=== PATIENT | male | born 1955 | race African-American/Black ===

== ENCOUNTER 2016-08-25 04:11 | Emergency (ER) | payer MEDICARE, BC ==
[~2016-08-25] VITALS: Ht 172.7 cm; Wt 86.2 kg
[~2016-08-25 04:11] MED LIST: ABILIFY2 MG ORAL; AVAPRO75 MG ORAL; AVODART0.5 MG ORAL; CARVEDILOL6.25 MG ORAL; HYDROQUINONE TP; KONSYL1 EACH PO; LASIX20 M1 ORAL; LORAZEPAM2 MG ORAL; MACROBID100 MG ORAL; MIRTAZAPINE15 MG ORAL; NORVASC10 MG ORAL; OXYCODONE HCL15 M1 ORAL; OXYCONTIN10 MG ORAL; POTASSIUM CHLO20 ME3 PO; PREPARATION H30 GM PR; RAPAFLO8 MG PO; REMERON15 MG ORAL; RETIN-A15 GM TP; SUPER BETA PROSTATE PO; TESTOSTERO200 MG/12 IM; WELLBUTRIN XL150 MG ORAL
[2016-08-25 05:00] VITALS: BP 180/110
--- NOTE | 2016-08-25 05:46 | Emergency Room Report ---
History of Present Illness General Chief Complaint: General Complaint Source: Patient (NINI FISHER M.D.) Present Illness HPI Is a 61-year-old male with multiple history of cancer in the past. Including throat and lung cancer. He presents with chief complaint of hemoptysis. Onset last night. He said he coughed up specks of blood. This occurred 6 times. He thought it may be secondary to his OxyContin. Denies any fever chills denies any nausea vomiting. No weight loss. No other complaint. (NINI FISHER M.D.) Allergies: Coded Allergies: No Known Allergies (Verified , 06/08/06) Patient History Past Medical History: see triage record, old chart reviewed Past Surgical History: other Pertinent Family History: none Social History: Denies: drug use Immunizations: other Reviewed Nursing Documentation: PMH: Agreed, PSxH: Agreed (NINI FISHER M.D.) Nursing Documentation-PMH Past Medical History: No History, Except For Hx Cardiac Problems: Yes Hx Hypertension: Yes Hx Pacemaker: Yes - Left chest Hx Asthma: Yes Hx COPD: Yes Hx Diabetes: Yes Hx Cancer: Yes Hx Neurological Problems: Yes Hx Cerebrovascular Accident: Yes Hx Transient Ischemic Attacks: Yes Hx Seizures: Yes - 1 TIME Hx Epilepsy: Yes Hx Memory Loss: Yes Hx Tremors: Yes Hx Vertigo: Yes Hx Dizziness: Yes Hx Syncope: Yes Hx Headaches: Yes Hx Numbness: Yes Hx Weakness: Yes Hx Fatigue: Yes (NINI FISHER M.D.) Review of Systems Eye: Denies: blurred vision, eye pain ENT: Denies: ear pain, nose congestion, throat swelling Respiratory: Denies: cough, shortness of breath Cardiovascular: Denies: chest pain, palpitations Gastrointestinal: Denies: abdominal pain, diarrhea, nausea, vomiting Musculoskeletal: Denies: back pain, joint pain Skin: Denies: rash Neurological: Denies: headache, numbness Endocrine: Denies: increased thirst, increased urine Hematologic/Lymphatic: Denies: easy bruising All Other Systems: negative except mentioned in HPI (NINI FISHER M.D.) Physical Exam Vital Signs Date Time Temp Pulse Resp B/P Pulse Ox O2 Delivery O2 Flow Rate FiO2 08/25/16 04:40 98.8 80 16 180/110 99 Room Air vitals with hypertension Sp02 EP Interpretation: reviewed, normal General Appearance: well appearing, no apparent distress, alert Head: normocephalic, atraumatic Eyes: bilateral eye EOMI, bilateral eye PERRL ENT: hearing grossly normal, normal pharynx Neck: full range of motion, supple, no meningismus Respiratory: chest non-tender, lungs clear, normal breath sounds Cardiovascular #1: regular rate, rhythm, no murmur Gastrointestinal: normal bowel sounds, non tender, no mass, no organomegaly, no bruit, non-distended Musculoskeletal: back normal, gait/station normal, normal range of motion Psychiatric: mood/affect normal Skin: warm/dry (NINI FISHER M.D.) Medical Decision Making Diagnostic Impression: Primary Impression: Hemoptysis Additional Impressions: Opioid dependence Qualified Codes: F11.20 - Opioid dependence, uncomplicated Hypertension Qualified Codes: I10 - Essential (primary) hypertension ER Course Presents with hemoptysis. I see no evidence of nasal trauma or problem in his throat. Because of his cancer history, would check labs and CT scan to rule out neoplastic process. Negative can be discharged home. I will sign this patient out to Dr. Romero for final disposition. If CT is negative, patient can be discharged home. (NINI FISHER M.D.) ER Course Hospital Course 61-year-old male presents ED complaining of spitting blood. Clinical course patient initially seen and evaluated by Dr Fisher; please see his note for full history and physical Labs - unremarkable CTA chest shows no evidence of PE or other acute process I discussed findings with patient. Given negative workup with stable vitals patient prefers to be discharged at this time. Patient has close followup with PMD Dr. Mora I feel this is a highly complex case requiring extensive working including EKG/ Rhythm strip, Xray/CT/US, Blood/urine lab work, repeat exams while in ED, and administration of strong opiates/narcotics for pain control, admission to hospital or close patient follow up. Diagnosis - hemoptysis, opioid dependence, hypertension Stable and discharged to home. Followup with PMD. Return to ED if symptoms recur or worsen Labs Test 08/25/16 05:40 White Blood Count 7.3 K/UL (4.8-10.8) Red Blood Count 5.66 M/UL (4.70-6.10) Hemoglobin 17.1 G/DL (14.2-18.0) Hematocrit 51.9 % (42.0-52.0) Mean Corpuscular Volume 92 FL (80-99) Mean Corpuscular Hemoglobin 30.2 PG (27.0-31.0) Mean Corpuscular Hemoglobin Concent 33.0 G/DL (32.0-36.0) Red Cell Distribution Width 11.9 % (11.6-14.8) Platelet Count 215 K/UL (150-450) Mean Platelet Volume 6.9 FL (6.5-10.1) Neutrophils (%) (Auto) 63.9 % (45.0-75.0) Lymphocytes (%) (Auto) 26.6 % (20.0-45.0) Monocytes (%) (Auto) 6.4 % (1.0-10.0) Eosinophils (%) (Auto) 2.0 % (0.0-3.0) Basophils (%) (Auto) 1.2 % (0.0-2.0) Sodium Level 137 mEQ/L (135-145) Potassium Level 4.5 mEQ/L (3.4-4.9) Chloride Level 97 mEQ/L (98-107) Carbon Dioxide Level 29 mEQ/L (20-30) Anion Gap 11 (5-15) Blood Urea Nitrogen 12 mg/dL (7-23) Creatinine 1.0 mg/dL (0.7-1.2) Estimat Glomerular Filtration Rate > 60 mL/min (>60) Glucose Level 128 mg/dL (74-106) Calcium Level 10.3 mg/dL (8.6-10.2) (CRISTY ROMERO M.D.) CT/MRI/US Diagnostic Results CT/MRI/US Diagnostic Results : Imaging Test Ordered: CT chest Impression negative per radiologist (NINI FISHER M.D.) CT/MRI/US Diagnostic Results : Imaging Test Ordered: CTA chest Impression no evidence of PE. no other acute process. (CRISTY ROMERO M.D.) Last Vital Signs Date Time Temp Pulse Resp B/P Pulse Ox O2 Delivery O2 Flow Rate FiO2 08/25/16 04:40 98.8 80 16 180/110 99 Room Air Status: improved (NINI FISHER M.D.) Status: improved (CRISTY ROMERO M.D.) Disposition: HOME, SELF-CARE Condition: Stable Referrals: NOT CHOSEN IPA/,REFERRING (PCP) NINI FISHER M.D. Aug 25, 2016 05:46 CRISTY ROMERO M.D. Aug 25, 2016 07:51
[2016-08-25] MEDS ORDERED: Norco 5mg/325mg tab ORAL ONE (06:00)
[2016-08-25 06:01] LABS: BASOPHILS % (AUTO) 1.2 % (0.0-2.0); LYMPHOCYTES % (AUTO) 26.6 % (20.0-45.0); MEAN CORPUSCULAR HEMOGLOBIN 30.2 PG (27.0-31.0); MEAN CORPUSCULAR VOLUME 92 FL (80-99); MEAN PLATELET VOLUME 6.9 FL (6.5-10.1); MONOCYTES % (AUTO) 6.4 % (1.0-10.0); NEUTROPHILS % (AUTO) 63.9 % (45.0-75.0); PLATELET COUNT 215 K/UL (150-450); RED BLOOD COUNT 5.66 M/UL (4.70-6.10); RED CELL DISTRIBUTION WIDTH 11.9 % (11.6-14.8); WHITE BLOOD COUNT 7.3 K/UL (4.8-10.8)
[2016-08-25 06:22] LABS: ANION GAP 11 (5-15); CALCIUM 10.3 mg/dL (8.6-10.2); CARBON DIOXIDE 29 mEQ/L (20-30); CHLORIDE 97 mEQ/L (98-107); GLOMERULAR FILTRATION RATE > 60 mL/min (>60); HEMOLYSIS 54; POTASSIUM 4.5 mEQ/L (3.4-4.9); SODIUM 137 mEQ/L (135-145)
[2016-08-25 07:42] VITALS: BP 180/110
--- NOTE | 2016-08-25 10:31 | Diagnostic Imaging Report ---
Indication: Chest pain Technique: Continuous helical transaxial imaging of the chest was obtained from the thoracic inlet to the upper abdomen during rapid intravenous contrast administration. Arterial phase of enhancement obtained. Coronal 2-D reformats were also obtained and maximum intensity projection images in multiple planes. Study obtained in a Siemens sensation [address] Total Dose length Product (DLP): [address] Dose Index Volume (CTDIvol): 12.6, 37.87, 22.41 mGy Comparison: None Findings: The pulmonary artery is suboptimally opacified. There is no evidence of a central pulmonary embolus. The more distal branches are better opacified. There is no evidence of a filling defect. There is breathing motion. Aorta appears normal caliber. There is no dissection. The heart is enlarged slightly. There is a pacemaker present. No obvious consolidative opacities identified. No interstitial disease or abnormal fluid collections identified. The visualized part of the upper abdomen is unremarkable. Lower cervical fusion hardware noted. Impression: No evidence of pulmonary embolus, aortic dissection or aneurysm. Lower cervical fusion. Pacemaker Breathing motion and suboptimal bolus limit evaluation. Dr. Chirinos has communicated the preliminary results to the Emergency Department. There are no significant discrepancies. The CT scanner at [facility] is accredited by the [employer] and the scans are performed using dose optimization techniques as appropriate to a performed exam including Automatic Exposure control.
== END 2016-08-25 07:39 | disposition home or self-care (01) ==
LOC: EMR 04:23
DX: R04.2 Hemoptysis (principal); F11.20 Opioid dependence, uncomplicated; I10 Essential (primary) hypertension; Z85.118 Personal history of other malignant neoplasm of bronchus and lung; Z85.89 Personal history of malignant neoplasm of other organs and systems; Z95.0 Presence of cardiac pacemaker; J44.9 Chronic obstructive pulmonary disease, unspecified; E11.9 Type 2 diabetes mellitus without complications; Z86.73 Personal history of transient ischemic attack (TIA), and cerebral infarction without residual deficits; M43.22 Fusion of spine, cervical region
CPT/HCPCS: 36415; 71275; 80048; 85025; 99284; Q9967

== ENCOUNTER 2018-11-06 11:46 | Emergency (ER) | payer MEDICARE, BC ==
[~2018-11-06] VITALS: Ht 172.7 cm; Wt 72.6 kg
--- NOTE | 2018-11-06 11:56 | NUR ---
ED Nurse Note: pt refused to take bp. per pt, "it hurts too much."
--- NOTE | 2018-11-06 11:59 | NUR ---
ED Nurse Note: Pt came in due to pain on left side groin area x couple of days. AAO x4 and ambulatory.
--- NOTE | 2018-11-06 12:14 | NUR ---
ED Nurse Note: US tech called.
[2018-11-06] MEDS ORDERED: Morphine Sulfate 2mg/ml Inj(IV/IM USE ONLY) IVP ONE ×2 (12:15→14:45)
[2018-11-06] MEDS ORDERED: UNOBMED (12:24)
--- NOTE | 2018-11-06 12:33 | NUR ---
ED Nurse Note:pt. refused blood draw at this time - "after the U/S", U/S is in the room
--- NOTE | 2018-11-06 13:21 | NUR ---
ED Nurse Note:U/S done, given pain med, pt. went to CT scan, was not able to get blood draw at this time
--- NOTE | 2018-11-06 14:44 | Diagnostic Imaging Report ---
Indication: Scrotal pain and swelling Technique: Multiplanar grayscale and duplex Doppler ultrasound of the scrotum Comparison: 01/29/2014 Findings: Limited exam as patient is very sensitive to touch of the ultrasound probe. Within these limitations: Raphae view demonstrates color flow to the bilateral testicles. The right testicle measures 2.5 x 2.1 x 1.7 cm/5.8 mL. The left testicle measures 2.1 x 2.2 x 2 cm/6.1 mL. Color and Doppler flow is visualized in the bilateral testicles. The left epididymis is prominent and asymmetrically hyperemic when compared to the right. This raises question for epididymitis. Left-sided varicocele noted as well. Microcalcifications noted in the bilateral testicles, uncertain clinical significance. No discrete mass lesions identified. An extratesticular structures noted in the left scrotum with some linear structures emanating from it most likely related to a penile prosthesis. IMPRESSION: * No evidence to suggest testicular torsion. Color and Doppler flow documented in the bilateral testicles. * Asymmetric enlargement and hyperemia of the left epididymis suggesting epididymitis. * Left-sided varicocele * Penile prosthesis partially visualized. * Testicular microlithiasis again noted. Association of this finding with testicular tumors is controversial. Recommend follow-up exam in 6-12 months.
--- NOTE | 2018-11-06 14:45 | NUR ---
ED Nurse Note:urine sent to labs and pain meds are given
[2018-11-06 14:55] LABS: ANION GAP 9 mmol/L (5-15); BLOOD UREA NITROGEN 18 mg/dL (7-18); CALCIUM 9.6 MG/DL (8.5-10.1); CARBON DIOXIDE 27 MMOL/L (21-32); CHLORIDE 104 MMOL/L (98-107); CREATININE 1.1 MG/DL (0.55-1.30); POTASSIUM 4.9 MMOL/L (3.5-5.1); SODIUM 140 MMOL/L (136-145)
[2018-11-06 14:58] LABS: INR 0.9 (0.9-1.1)
[2018-11-06 15:01] LABS: ALANINE AMINOTRANSFERASE 25 U/L (12-78); ALBUMIN 3.6 G/DL (3.4-5.0); ALBUMIN/GLOBULIN RATIO 0.9 (1.0-2.7); ALKALINE PHOSPHATASE 71 U/L (46-116); ASPARTATE AMINO TRANSFERASE 28 U/L (15-37); BILIRUBIN,TOTAL 0.4 MG/DL (0.2-1.0)
--- NOTE | 2018-11-06 15:08 | Diagnostic Imaging Report ---
Indication: Abdominal pain Technique: Noncontrast CT of the abdomen and pelvis utilizing automated exposure control. Axial, sagittal and coronal reformats presented. CT dose: Total DLP 2844 mGycm; CTDI vol 53.4 mGy Comparison: 09/14/2012 Findings: Please note that evaluation of the abdominal and pelvic viscera and vascular structures is limited without the use of intravenous and oral contrast. Within these limitations the following observations are made: Dependent atelectasis noted in the posterior lower lobes. There is linear atelectasis or scarring in the right middle lobe. Heart size within normal limits. Pacer wires are partially visualized. There is thin focal pericardial thickening versus effusion. Coronary arterial calcifications partially visualized. Patient is status post cholecystectomy. Otherwise noncontrast evaluation of the liver is unremarkable. Noncontrast evaluation of the spleen, adrenal glands and pancreas grossly unremarkable. Kidneys are symmetric in size. There is no urinary tract stone, hydronephrosis or perinephric stranding. Bladder wall thickening is noted which may be related to underdistention. Seminal vesicles unremarkable in appearance. There is likely amenable prostate surgery given significant decreased size of the prostate compared to prior. There is a penile prosthesis. There is a reservoir in the right lower quadrant. No discontinuity noted within the attachments of the penile prosthesis to the reservoir. There is no free intraperitoneal air or fluid. There is no evidence of bowel obstruction or definite inflammatory changes in the mesentery. This is normal. Abdominal aorta normal in caliber with overall mild atherosclerotic calcification. There are degenerative changes of the spine. No acute osseous abnormality. IMPRESSION: Limited exam without intravenous and oral contrast. Within these limitations: * Indwelling penile prosthesis with reservoir in the right lower quadrant and additional implant within the scrotum. No discontinuity within the connections of the penile prosthesis. Patient reports prosthesis is not working properly. Recommend urology follow-up. * Pacemaker leads partially visualized. * Status post cholecystectomy. * Interval prostate surgery The CT scanner at [facility] is accredited by the [employer] and the scans are performed using protocols designed to limit radiation exposure to as low as reasonably achievable to attain images of sufficient resolution adequate for diagnostic evaluation.
[2018-11-06 15:12] LABS: HEMATOCRIT 38.3 % (42.0-52.0); HEMOGLOBIN 12.8 G/DL (14.2-18.0); LYMPHOCYTES % (AUTO) 22.7 % (20.0-45.0); MEAN CORPUSCULAR VOLUME 89 FL (80-99); MONOCYTES % (AUTO) 11.8 % (1.0-10.0); NEUTROPHILS % (AUTO) 59.5 % (45.0-75.0); PLATELET COUNT 226 K/UL (150-450); RED BLOOD COUNT 4.31 M/UL (4.70-6.10); RED CELL DISTRIBUTION WIDTH 11.4 % (11.6-14.8); WHITE BLOOD COUNT 8.5 K/UL (4.8-10.8)
[2018-11-06 15:25] LABS: APPEARANCE,URINE CLEAR; BILIRUBIN, URINE NEGATIVE (NEGATIVE); COLOR,URINE PALE YELLOW; GLUCOSE, URINE (UA) NEGATIVE (NEGATIVE); KETONES,URINE NEGATIVE (NEGATIVE); LEUKOCYTE ESTERASE ,URINE 2+ (NEGATIVE); NITRITE,URINE POSITIVE (NEGATIVE); PH,URINE 5 (4.5-8.0); PROTEIN,URINE NEGATIVE (NEGATIVE); UROBILINOGEN,URINE NORMAL MG/DL (0.0-1.0)
--- NOTE | 2018-11-06 15:32 | Emergency Room Report ---
History of Present Illness General Chief Complaint: Pain Source: Medical Record Present Illness HPI 63-year-old male with history of partial penile paresthesias 1 year ago here complaining of 3 days of 10 out of 10 scrotal pain and testicular swelling. Denies any recent trauma or injury. Denies recent sexual encounter. Denies abdominal pain, chest pain, shortness of breath, palpitation, no other associated symptoms. Denies dysuria, urinary frequency, hematuria, flank pain. Patient reports that he took oxycodone intermittently which did not help and and is asking for morphine. No sign of testicular torsion noted left side of the scrotum is erythematous however not warm to touch patient is rating pain 10 out of 10 upon palpation. Right side of the scrotum is also erythematous however no hard masses noted. Allergies: Coded Allergies: No Known Allergies (Verified , 06/08/06) Patient History Past Medical History: see triage record Past Surgical History: unable to obtain Pertinent Family History: none Immunizations: UTD Reviewed Nursing Documentation: PMH: Agreed; PSxH: Agreed Nursing Documentation-PMH Past Medical History: No History, Except For Hx Cardiac Problems: Yes Hx Hypertension: Yes Hx Pacemaker: Yes - Left chest Hx Asthma: Yes Hx COPD: Yes Hx Diabetes: Yes Hx Cancer: Yes Hx Neurological Problems: Yes Hx Cerebrovascular Accident: Yes Hx Transient Ischemic Attacks: Yes Hx Seizures: Yes - 1 TIME Hx Epilepsy: Yes Hx Memory Loss: Yes Hx Tremors: Yes Hx Vertigo: Yes Hx Dizziness: Yes Hx Syncope: Yes Hx Headaches: Yes Hx Numbness: Yes Hx Weakness: Yes Hx Fatigue: Yes Review of Systems All Other Systems: negative except mentioned in HPI Physical Exam Vital Signs Date Time Temp Pulse Resp B/P (MAP) Pulse Ox O2 Delivery O2 Flow Rate FiO2 11/06/18 11:54 99.7 81 18 98 Room Air Sp02 EP Interpretation: reviewed, normal General Appearance: no apparent distress, alert, GCS 15, non-toxic Head: normocephalic, atraumatic Eyes: bilateral eye normal inspection, bilateral eye PERRL ENT: hearing grossly normal, normal pharynx, no angioedema, normal voice Neck: full range of motion, supple/symm/no masses Respiratory: chest non-tender, lungs clear, normal breath sounds, speaking full sentences Cardiovascular #1: regular rate, rhythm, no edema, no murmur Gastrointestinal: normal bowel sounds, non tender, soft, non-distended, no guarding, no hernia, no rebound Rectal: deferred Genitourinary: no CVA tenderness, other - Scrotal swelling Musculoskeletal: back normal, gait/station normal, normal range of motion, non- tender, no calf tenderness Neurologic: normal inspection, alert, oriented x3 Psychiatric: judgement/insight normal, memory normal, mood/affect normal, no suicidal/homicidal ideation Skin: no rash Lymphatic: normal inspection, no adenopathy, inguinal node tender (R), inguinal node tender (L) Medical Decision Making PA Attestation All my diagnosis and treatment plans were reviewed ad discussed with my supervising physician Dr. Meng Diagnostic Impression: Primary Impression: Acute epididymitis Additional Impressions: Testicular pain Varicocele ER Course 63-year-old male with history of partial penile paresthesias 1 year ago here complaining of 3 days of 10 out of 10 scrotal pain and testicular swelling. Denies any recent trauma or injury. Denies recent sexual encounter. Denies abdominal pain, chest pain, shortness of breath, palpitation, no other associated symptoms. Denies dysuria, urinary frequency, hematuria, flank pain. Patient reports that he took oxycodone intermittently which did not help and and is asking for morphine. No sign of testicular torsion noted left side of the scrotum is erythematous however not warm to touch patient is rating pain 10 out of 10 upon palpation. Right side of the scrotum is also erythematous however no hard masses noted. Ddx considered but are not limited to: Testicular torsion, epididymitis, hydrocele, varicocele, testicular cancer Vital signs: are WNL, pt. is afebrile H&PE are most consistent with : Varicocele, epididymitis ORDERS: UA, , GC and chlamydia, CBC, CMP, CRP and ESR, scrotal ultrasound, CT scan pelvis, doxycycline, ibuprofen ED INTERVENTIONS: Morphine, Zofran, Rocephin DISCHARGE: At this time pt. is stable for d/c to home. Will provide printed patient care instructions, and any necessary prescriptions. Care plan and follow up instructions have been discussed with the patient prior to discharge. Patient to follow-up with his urologist for further assessment take medication as directed if worsening symptoms return to the emergency room CT/MRI/US Diagnostic Results CT/MRI/US Diagnostic Results #1: Imaging Test Ordered: scrotal US Impression Epididymitis in the left side as well as varicocele on the left side, right- sided prostatic paracentesis CT/MRI/US Diagnostic Results #2: Imaging Test Ordered: CT abdomen pelvis without contrast Impression Within normal limits Last Vital Signs Date Time Temp Pulse Resp B/P (MAP) Pulse Ox O2 Delivery O2 Flow Rate FiO2 11/06/18 14:31 99.7 11/06/18 11:54 84 18 98 Room Air Disposition: HOME, SELF-CARE Condition: Stable Scripts Doxycycline Hyclate* (VIBRAMYCIN*) 100 Mg Capsule 100 MG ORAL EVERY 12 HOURS for 10 Days, #20 CAP 0 Refills Prov: Eunice Cooper 11/06/18 Ibuprofen (Ibu) 800 Mg Tablet 800 MG PO TID, #30 TAB Prov: Eunice Cooper 11/06/18 Referrals: NOT CHOSEN IPA/,REFERRING (PCP) Patient Instructions: Epididymitis, Scrotal Swelling Additional Instructions: Take medication as directed follow-up with your primary care provider you need a referral to urologist and repeat of ultrasound and further assessment take antibiotics as the swelling in your left testicle is secondary to epididymitis. Eunice Cooper Nov 06, 2018 15:32
[2018-11-06] MEDS ORDERED: Lidocaine 1% MPF 10mg/ml 5ml INJ ONE (15:45)
[2018-11-06] MEDS ORDERED: IBU800 MG PO (16:54)
[2018-11-06] MEDS ORDERED: VIBRAMYCIN100 MG ORAL (16:54)
--- NOTE | 2018-11-06 17:00 | NUR ---
ER DISCHARGE NOTE: Patient is cleared to be discharged per ERMD, pt is aox4, on room air, with stable vital signs. pt was given dc and prescription instructions, pt was able to verbalize understanding, pt is able to ambulate with steady gait. pt took all belongings.
== END 2018-11-06 17:00 | disposition home or self-care (01) ==
LOC: EMR 13:20
DX: N45.1 Epididymitis (principal); I86.1 Scrotal varices; I10 Essential (primary) hypertension; J44.9 Chronic obstructive pulmonary disease, unspecified; E11.9 Type 2 diabetes mellitus without complications; Z86.73 Personal history of transient ischemic attack (TIA), and cerebral infarction without residual deficits; Z95.0 Presence of cardiac pacemaker; G40.909 Epilepsy, unspecified, not intractable, without status epilepticus
CPT/HCPCS: 36415; 74176; 76870; 80053; 80307; 81001; 85025; 85610; 85651; 85730; 86140; 86850; 86900; 86901; 87491; 87590; 96372; 96374; 96375; 96376; 99284; J0696; J2270; J2405